=== PATIENT | male | born 1955 | race Caucasian/White ===

== ENCOUNTER 2020-06-09 20:52 | Observation (INO) | payer MEDICARE, OTHER ==
[2020-06-09 21:43] LABS: Basophils # (A) 0.1 k/uL (0-0.2); Basophils % (A) 1 %; Eosinophils # (A) 0.2 k/uL (0-0.7); Eosinophils % (A) 3 %; HGB 16.3 gm/dL (13.0-17.5); Lymphocytes # (A) 2.9 k/uL (1.0-4.8); Lymphocytes % (A) 32 %; MCH 33.6 pg (25.0-35.0); MCHC 35.4 g/dL (31.0-37.0); MCV 94.9 fL (80.0-100.0); Mean Platelet Volume 7.8; Monocytes # (A) 0.6 k/uL (0-1.0); Monocytes % (A) 7 %; Neutrophils # (A) 5.1 k/uL (1.3-7.7); Neutrophils % (A) 56 %; Platelet Count 310 k/uL (150-450); RBC 4.84 m/uL (4.30-5.90); WBC 9.1 k/uL (3.8-10.6)
[2020-06-09 21:45] LABS: ALT 62 U/L (4-49); AST 81 U/L (17-59); Acetaminophen <10.0 ug/mL; African American GFR (CKD) >90 (>60 ml/min/1.73 sqM); Albumin 4.7 g/dL (3.5-5.0); Alkaline Phosphatase 82 U/L (38-126); Anion Gap 12 mmol/L; Blood Urea Nitrogen 13 mg/dL (9-20); Calcium 9.3 mg/dL (8.4-10.2); Carbon Dioxide 23 mmol/L (22-30); Chloride 110 mmol/L (98-107); Glucose 90 mg/dL (74-99); Non-African American GFR(CKD) >90 (>60 ml/min/1.73 sqM); Salicylate <1.0 mg/dL; Sodium 145 mmol/L (137-145); Total Bilirubin 0.6 mg/dL (0.2-1.3); Total Protein 8.1 g/dL (6.3-8.2)
[2020-06-09 21:48] LABS: Alcohol 296 mg/dL
[2020-06-09] MEDS ORDERED: NALOXONE 0.4 MG/ML 1 ML VIAL IV PRN (22:42)
--- NOTE | 2020-06-09 22:55 | ED ---
General Adult HPI - General Chief complaint: Psychiatric Symptoms Stated complaint: Mental Health Time Seen by Provider: 06/09/20 20:57 Source: EMS Mode of arrival: EMS Limitations: no limitations - History of Present Illness Initial comments: Aj is a 65 yo male who was brought to the ER today via ambulance for alcohol intoxication. Apparently the patient had been sleeping in a local gas station bathroom, when attempts were made to kick him out he became irate so 911 was called. Patient was intoxicated so he was brought to the ER. En route patient was aggressive with staff, stated he wanted to , then began crying stating that he does not want to . - Related Data Home Medications Medication Instructions Recorded Confirmed Naproxen [Naprosyn] 500 mg PO Q12HR PRN 06/09/20 06/09/20 Allergies Allergy/AdvReac Type Severity Reaction Status Date / Time No Known Allergies Allergy Verified 02/26/16 18:30 Review of Systems ROS Statement: Those systems with pertinent positive or pertinent negative responses have been documented in the HPI. ROS Other: All systems not noted in ROS Statement are negative. Past Medical History Additional Past Medical History / Comment(s): states chronic heart pt and states hx of head injury History of Any Multi-Drug Resistant Organisms: None Reported Past Surgical History: Unable to Obtain Past Psychological History: No Psychological Hx Reported, Unable to Obtain Smoking Status: Current every day smoker Past Alcohol Use History: Daily, Heavy Past Drug Use History: None Reported, Heroin General Exam - General Exam Comments Initial Comments: Physical Exam GENERAL: appears older than stated age HENT: Normocephalic, Atraumatic. EYES: PERRL, EOMI PULMONARY: Unlabored respirations. CARDIOVASCULAR: RRR Warm and well perfused extremities ABDOMEN: Non-distended SKIN: Abrasion on left knee : Deferred NEUROLOGIC: Alert and oriented MUSCULOSKELETAL: Moving all extremities with no apparent injury PSYCHIATRIC: Agitated, aggressive Limitations: no limitations Course Vital Signs 06/09/20 20:54 Temperature 97.5 F L Pulse Rate 76 Respiratory 20 Rate Blood Pressure 130/95 O2 Sat by Pulse 94 L Oximetry Medical Decision Making - Medical Decision Making Patient was seen and evaluated Patient initially aggressive with staff, able to be calmed and fell asleep Alcohol 296 - will place in observation until sober - Dr Lawrence accepts - Lab Data Result diagrams: 06/09/20 21:23 06/09/20 21:22 Lab Results 06/09/20 06/09/20 Range/Units 21:22 21:23 WBC 9.1 (3.8-10.6) k/uL RBC 4.84 (4.30-5.90) m/uL Hgb 16.3 (13.0-17.5) gm/dL Hct 46.0 (39.0-53.0) % MCV 94.9 (80.0-100.0) fL MCH 33.6 (25.0-35.0) pg MCHC 35.4 (31.0-37.0) g/dL RDW 15.0 (11.5-15.5) % Plt Count 310 (150-450) k/uL MPV 7.8 Neutrophils % 56 % Lymphocytes % 32 % Monocytes % 7 % Eosinophils % 3 % Basophils % 1 % Neutrophils # 5.1 (1.3-7.7) k/uL Lymphocytes # 2.9 (1.0-4.8) k/uL Monocytes # 0.6 (0-1.0) k/uL Eosinophils # 0.2 (0-0.7) k/uL Basophils # 0.1 (0-0.2) k/uL Sodium 145 (137-145) mmol/L Potassium 6.0 H (3.5-5.1) mmol/L Chloride 110 H (98-107) mmol/L Carbon Dioxide 23 (22-30) mmol/L Anion Gap 12 mmol/L BUN 13 (9-20) mg/dL Creatinine 0.76 (0.66-1.25) mg/dL Est GFR (CKD-EPI)AfAm >90 (>60 ml/min/1.73 sqM) Est GFR (CKD-EPI)NonAf >90 (>60 ml/min/1.73 sqM) Glucose 90 (74-99) mg/dL Calcium 9.3 (8.4-10.2) mg/dL Total Bilirubin 0.6 (0.2-1.3) mg/dL AST 81 H (17-59) U/L ALT 62 H (4-49) U/L Alkaline Phosphatase 82 (38-126) U/L Total Protein 8.1 (6.3-8.2) g/dL Albumin 4.7 (3.5-5.0) g/dL Salicylates <1.0 mg/dL Acetaminophen <10.0 ug/mL Serum Alcohol 296 H* mg/dL Disposition Clinical Impression: Alcohol intoxication Disposition: ADMITTED IP TO THIS HOSP Condition: Stable Is patient prescribed a controlled substance at d/c from ED?: No Referrals: None,Stated [Primary Care Provider] - 1-2 days
--- NOTE | 2020-06-10 00:08 | P.HPIM ---
History of Present Illness H&P Date: 06/09/20 Patient is a 65-year-old male, currently homeless with a PMH of EtOH abuse who was brought in to the emergency room for alcohol intoxication. The patient was reportedly found at a gas station bathroom and had refused to leave thereby police was called. They found the patient to be intoxicated and subsequently brought into the emergency room. The patient had reportedly endorsed some suicidal ideation to the police officers. He was seen in the emergency room at the bedside. He reported that he is homeless and that he drinks roughly a gallon of vodka daily and has been doing so for the past several decades. He reported being hungry and asked for food. He denied additional complaints. He denied suicidal ideation and noted that he has no plans of hurting himself. Denied additional complaints. Denied chest pain, shortness breath, fever, chills, nausea, vomiting, abdominal pain, diarrhea. Review of Systems Pertinent positives and negatives as discussed in HPI, a complete review of systems was performed and all other systems are negative. Past Medical History Additional Past Medical History / Comment(s): states chronic heart pt and states hx of head injury History of Any Multi-Drug Resistant Organisms: None Reported Past Surgical History: Unable to Obtain Past Psychological History: No Psychological Hx Reported, Unable to Obtain Smoking Status: Current every day smoker Past Alcohol Use History: Daily, Heavy Past Drug Use History: None Reported, Heroin Medications and Allergies Home Medications Medication Instructions Recorded Confirmed Type Naproxen [Naprosyn] 500 mg PO Q12HR PRN 06/09/20 06/09/20 History Allergies Allergy/AdvReac Type Severity Reaction Status Date / Time No Known Allergies Allergy Verified 02/26/16 18:30 Physical Exam Vitals: Vital Signs Temp Pulse Resp BP Pulse Ox 06/09/20 20:54 97.5 F L 76 20 130/95 94 L Intake and Output 06/09/20 06/09/20 06/10/20 14:59 22:59 06:59 Other: Weight 63.503 kg General: Disheveled male, non toxic, no distress, appears at stated age, normal weight Derm: no unusual rashes/lesions no unusual ecchymoses, warm, dry Head: atraumatic, normocephalic, symmetric Eyes: EOMI, no lid lag, anicteric sclera, pupils equal round reactive to light ENT: Nose and ears atraumatic, no thrush, no pharyngeal erythema Neck: No thyromegaly, no cervical lymphadenopathy, trachea midline, supple Mouth: no lip lesion, mucus membranes moist Cardiovascular: S1S2 reg, grade 3 systolic murmur appreciated, positive posterior tibial pulse bilateral, no edema, capillary refill less than 2 seconds Lungs: CTA bilateral, no rhonchi, no rales , no accessory muscle use Abdominal: soft, nontender to palpation, no guarding, no appreciable organomegaly, normal bowel sounds Ext: no gross muscle atrophy, muscle strength 5 out of 5 in all 4 extremities grossly, no contractures, Neuro: CN II-XI grossly intact, light touch intact all 4 extremities, finger to nose within normal limits, slightly tremulous Psych: Alert, oriented, appropriate affect Results CBC & Chem 7: 06/09/20 21:23 06/09/20 21:22 Labs: Abnormal Lab Results - Last 24 Hours (Table) 06/09/20 Range/Units 21:22 Potassium 6.0 H (3.5-5.1) mmol/L Chloride 110 H (98-107) mmol/L AST 81 H (17-59) U/L ALT 62 H (4-49) U/L Serum Alcohol 296 H* mg/dL Assessment and Plan Plan: Alcohol intoxication, impending withdrawal -CIWA protocol -Continue with thiamine -Monitor electrolytes -Fall precautions Abnormal LFTs, likely due to alcohol abuse -Monitor for now DVT prophylaxis -Heparin subq The patient is admitted with an anticipated less than 2 midnight stay for evaluation of EtOH abuse CODE STATUS: Ful Code Discussed with: patient Anticipated discharge date: in am Anticipated discharge place: senior living A total of 35 minutes was spent on the care of this complex patient more than 50% of the time was spent in counseling and care coordination.
[2020-06-10] MEDS ORDERED: SODIUM CHLORIDE 0.9% 1,000 ML IV SCH (00:15)
[2020-06-10 01:58] VITALS: PULSE 72
[2020-06-10 02:49] LABS: Amphetamine Screen,Urine Not Detected (NotDetected); Barbiturate Screen,Urine Not Detected (NotDetected); Benzodiazepines Screen,Urine Detected (NotDetected); Cocaine Screen,Urine Not Detected (NotDetected); Methadone Screen, Urine Not Detected (NotDetected); Opiate Screen,Urine Not Detected (NotDetected); Oxycodone Screen, Urine Not Detected (NotDetected); Phencyclidine Screen,Urine Not Detected (NotDetected); Tricyclic Antidepressant,Urine Not Detected (NotDetected); Urn Cannabinoid Scrn Not Detected (NotDetected)
[2020-06-10 05:14] VITALS: BP 108/72; RESP 18; TEMP 98.8
[2020-06-10] MEDS ORDERED: HEPARIN SODIUM,PORCINE 5,000 UNIT/ML 1 ML VIAL SQ SCH (08:00)
[2020-06-10] MEDS ORDERED: THIAMINE 100 MG TAB PO SCH (09:00)
[2020-06-10] MEDS ORDERED: MULTIVITAMINS, THERA 1 EACH TAB PO SCH (09:00)
== END 2020-06-10 05:17 | disposition left against medical advice (07) ==
LOC: EC 20:52 → 6NMEDSUR 22:43
PROVIDERS: ADMIT Internal Medicine; ATTEND Internal Medicine
DX: F10.129 Alcohol abuse with intoxication, unspecified (principal); R94.5 Abnormal results of liver function studies; F17.200 Nicotine dependence, unspecified, uncomplicated; Z59.0 Homelessness; Z87.828 Personal history of other (healed) physical injury and trauma
CPT/HCPCS: 96360; 96361; 82075 ×2; 99285; 36415; 80053; 85025; 80306; 80143; 80179; G0378 ×2; G0480; 80320

== ENCOUNTER 2020-06-11 20:31 | Observation (INO) | payer OTHER ==
[~2020-06-11 20:31] MED LIST: THIAMINE 100 MG TAB PO SCH
--- NOTE | 2020-06-11 20:45 | ED ---
General Adult HPI - General Source: patient, EMS, RN notes reviewed Mode of arrival: EMS Limitations: no limitations <Ron Lyon - Last Filed: 06/11/20 21:05> <Won Marrero P - Last Filed: 06/11/20 23:18> - General Stated complaint: ETOH Time Seen by Provider: 06/11/20 20:36 - History of Present Illness Initial comments: Patient is a 65-year-old male presenting to the emergency department for alcohol intoxication. Patient was reportedly found outside with a bottle of vodka. Patient admits to drinking a lot of alcohol normally. Patient states he did drink a little bit more than normal today. Patient denies any injury. Patient has no complaints. (Ron Lyon) - Related Data Home Medications Medication Instructions Recorded Confirmed Naproxen [Naprosyn] 500 mg PO Q12HR PRN 06/09/20 06/11/20 Allergies Allergy/AdvReac Type Severity Reaction Status Date / Time No Known Allergies Allergy Verified 06/11/20 21:46 Review of Systems ROS Other: All systems not noted in ROS Statement are negative. Constitutional: Denies: fever Eyes: Denies: eye pain ENT: Denies: ear pain Respiratory: Denies: cough Cardiovascular: Denies: chest pain Endocrine: Denies: fatigue Gastrointestinal: Denies: abdominal pain Genitourinary: Denies: dysuria Musculoskeletal: Denies: back pain Skin: Denies: rash Neurological: Denies: weakness <Ron Lyon - Last Filed: 06/11/20 21:05> ROS Other: All systems not noted in ROS Statement are negative. <Won Marrero P - Last Filed: 06/11/20 23:18> ROS Statement: Those systems with pertinent positive or pertinent negative responses have been documented in the HPI. Past Medical History Additional Past Medical History / Comment(s): states chronic heart pt and states hx of head injury History of Any Multi-Drug Resistant Organisms: None Reported Past Surgical History: Unable to Obtain Past Psychological History: No Psychological Hx Reported, Unable to Obtain Smoking Status: Current every day smoker Past Alcohol Use History: Daily, Heavy Past Drug Use History: None Reported, Heroin <Ron Lyon - Last Filed: 06/11/20 21:05> General Exam Limitations: no limitations General appearance: alert, in no apparent distress Eye exam: Present: normal appearance, PERRL Neck exam: Present: normal inspection. Absent: tenderness Respiratory exam: Present: normal lung sounds bilaterally Cardiovascular Exam: Present: regular rate, normal rhythm GI/Abdominal exam: Present: soft. Absent: tenderness Extremities exam: Present: normal inspection, full ROM. Absent: tenderness Neurological exam: Present: alert Expanded Patient oriented to: Present: person. Absent: place, time Psychiatric exam: Present: normal affect, normal mood Skin exam: Present: normal color <Ron Lyon - Last Filed: 06/11/20 21:05> Course Vital Signs 06/11/20 20:46 Temperature 97.6 F Pulse Rate 85 Respiratory 18 Rate Blood Pressure 120/87 O2 Sat by Pulse 98 Oximetry Medical Decision Making - Lab Data Result diagrams: 06/11/20 21:32 06/11/20 21:32 <Won Marrero - Last Filed: 06/11/20 23:18> - Medical Decision Making Patient care was signed out to me by Dr. Lyon at 2100. Patient alcohol was found to be 325. Patient reevaluated, clinically acutely intoxicated. Patient is homeless, does not have anyone to pick him up. Patient will be admitted for acute alcohol intoxication and monitoring. (Won Marrero) - Lab Data Lab Results 06/11/20 06/11/20 Range/Units 21:32 21:32 WBC 7.6 (3.8-10.6) k/uL RBC 4.72 (4.30-5.90) m/uL Hgb 15.0 (13.0-17.5) gm/dL Hct 45.0 (39.0-53.0) % MCV 95.3 (80.0-100.0) fL MCH 31.7 (25.0-35.0) pg MCHC 33.3 (31.0-37.0) g/dL RDW 15.0 (11.5-15.5) % Plt Count 242 (150-450) k/uL MPV 8.3 Neutrophils % 53 % Lymphocytes % 29 % Monocytes % 11 % Eosinophils % 3 % Basophils % 1 % Neutrophils # 4.0 (1.3-7.7) k/uL Lymphocytes # 2.2 (1.0-4.8) k/uL Monocytes # 0.8 (0-1.0) k/uL Eosinophils # 0.2 (0-0.7) k/uL Basophils # 0.1 (0-0.2) k/uL Sodium 145 (137-145) mmol/L Potassium 3.8 (3.5-5.1) mmol/L Chloride 109 H (98-107) mmol/L Carbon Dioxide 23 (22-30) mmol/L Anion Gap 13 mmol/L BUN 16 (9-20) mg/dL Creatinine 0.88 (0.66-1.25) mg/dL Est GFR (CKD-EPI)AfAm >90 (>60 ml/min/1.73 sqM) Est GFR (CKD-EPI)NonAf >90 (>60 ml/min/1.73 sqM) Glucose 130 H (74-99) mg/dL Calcium 9.4 (8.4-10.2) mg/dL Magnesium 2.2 (1.6-2.3) mg/dL Serum Alcohol 325 H* mg/dL Disposition Is patient prescribed a controlled substance at d/c from ED?: No <Ron Lyon - Last Filed: 06/11/20 21:05> Is patient prescribed a controlled substance at d/c from ED?: No Time of Disposition: 23:18 <Won Marrero - Last Filed: 06/11/20 23:18> Clinical Impression: Alcohol intoxication Disposition: ADMITTED IP TO THIS HOSP Condition: Fair Referrals: None,Stated [Primary Care Provider] - 1-2 days
[2020-06-11 20:58] VITALS: BP 120/87; PULSE 85; RESP 18; TEMP 97.6
[2020-06-11] MEDS ORDERED: SODIUM CHLORIDE 0.9% 1,000 ML IV STA (21:06)
[2020-06-11] MEDS ORDERED: MULTIVITAMINS, THERA 1 EACH TAB PO STA (21:06)
[2020-06-11 21:38] LABS: Basophils # (A) 0.1 k/uL (0-0.2); Basophils % (A) 1 %; Eosinophils # (A) 0.2 k/uL (0-0.7); Eosinophils % (A) 3 %; Lymphocytes # (A) 2.2 k/uL (1.0-4.8); Lymphocytes % (A) 29 %; MCH 31.7 pg (25.0-35.0); MCHC 33.3 g/dL (31.0-37.0); MCV 95.3 fL (80.0-100.0); Mean Platelet Volume 8.3; Monocytes # (A) 0.8 k/uL (0-1.0); Monocytes % (A) 11 %; Neutrophils % (A) 53 %; Platelet Count 242 k/uL (150-450); RBC 4.72 m/uL (4.30-5.90); WBC 7.6 k/uL (3.8-10.6)
[2020-06-11 21:47] LABS: African American GFR (CKD) >90 (>60 ml/min/1.73 sqM); Anion Gap 13 mmol/L; Blood Urea Nitrogen 16 mg/dL (9-20); Calcium 9.4 mg/dL (8.4-10.2); Carbon Dioxide 23 mmol/L (22-30); Chloride 109 mmol/L (98-107); Glucose 130 mg/dL (74-99); Magnesium 2.2 mg/dL (1.6-2.3); Non-African American GFR(CKD) >90 (>60 ml/min/1.73 sqM); Potassium 3.8 mmol/L (3.5-5.1); Sodium 145 mmol/L (137-145)
[2020-06-11 22:14] LABS: Alcohol 325 mg/dL
[2020-06-11] MEDS ORDERED: NALOXONE 0.4 MG/ML 1 ML VIAL IV PRN (23:15)
[2020-06-11] MEDS ORDERED: LORazepam 2 MG/ML INJ IV PRN ×3 (23:17)
[2020-06-12] MEDS ORDERED: NICOTINE 21MG/24HR PATCH TRANSDERM STA (01:24)
[2020-06-12] MEDS ORDERED: THIAMINE 100 MG TAB PO SCH (09:00)
== END 2020-06-12 03:47 | disposition left against medical advice (07) ==
LOC: EC 20:31 → 6NMEDSUR 23:08
PROVIDERS: ADMIT Hospitalist; ATTEND Hospitalist
DX: F10.129 Alcohol abuse with intoxication, unspecified (principal); F17.200 Nicotine dependence, unspecified, uncomplicated; Y90.8 Blood alcohol level of 240 mg/100 ml or more; Z79.1 Long term (current) use of non-steroidal anti-inflammatories (NSAID); Z59.0 Homelessness; Z87.828 Personal history of other (healed) physical injury and trauma; Z53.29 Procedure and treatment not carried out because of patient's decision for other reasons
CPT/HCPCS: 82075; 99285; 36415; 80048; 83735; 85025; G0378 ×2; G0480; S4990; 80320

== ENCOUNTER 2020-06-13 11:11 | Inpatient (IN) | payer OTHER ==
[2020-06-13] MEDS ORDERED: SODIUM CHLORIDE 0.9% 1,000 ML IV ONE ×2 (11:49→13:19)
--- NOTE | 2020-06-13 12:01 | ED ---
General Adult HPI - General Chief complaint: Alcohol Stated complaint: ETOH Time Seen by Provider: 06/13/20 11:25 Source: patient, EMS, RN notes reviewed, old records reviewed Mode of arrival: EMS Limitations: altered mental status - History of Present Illness Initial comments: This is a 65-year-old male with past medical history significant for alcohol intoxication. Patient comes in today because he was found lying outside and unable to take care of himself so the police wanted him brought in for evaluation. Patient states he just drank a lot. Patient denies any physical complaints today. Patient denies any hallucinations or delusions. Patient denies being depressed. Patient denies any suicidal or homicidal thoughts. Patient denies any recent injury. - Related Data Home Medications Medication Instructions Recorded Confirmed Naproxen [Naprosyn] 500 mg PO Q12HR PRN 06/09/20 06/11/20 Allergies Allergy/AdvReac Type Severity Reaction Status Date / Time No Known Allergies Allergy Verified 06/11/20 21:46 Review of Systems ROS Statement: Those systems with pertinent positive or pertinent negative responses have been documented in the HPI. ROS Other: All systems not noted in ROS Statement are negative. Past Medical History Past Medical History: Unable to Obtain Additional Past Medical History / Comment(s): states chronic heart pt and states hx of head injury History of Any Multi-Drug Resistant Organisms: None Reported Past Surgical History: Unable to Obtain Past Psychological History: Unable to Obtain Smoking Status: Current every day smoker Past Alcohol Use History: Abuse, Daily, Heavy Past Drug Use History: None Reported, Heroin General Exam - General Exam Comments Initial Comments: GENERAL: Patient is well-developed and well-nourished. Patient is nontoxic and well- hydrated and is in no acute distress. Patient appears very intoxicated ENT: Neck is soft and supple. No significant lymphadenopathy is noted. Oropharynx is clear. Moist mucous membranes. Neck has full range of motion without eliciting any pain. EYES: The sclera were anicteric and conjunctiva were pink and moist. Extraocular movements were intact and pupils were equal round and reactive to light. Eyelids were unremarkable. PULMONARY: Unlabored respirations. Good breath sounds bilaterally. No audible rales rhonchi or wheezing was noted. CARDIOVASCULAR: There is a regular rate and rhythm without any murmurs gallops or rubs. ABDOMEN: Soft and nontender with normal bowel sounds. SKIN: Skin is clear with no lesions or rashes and otherwise unremarkable. NEUROLOGIC: Patient is alert and oriented x3. Cranial nerves II through XII are grossly intact. Motor and sensory are also intact. Normal speech, volume and content. Symmetrical smile. MUSCULOSKELETAL: Normal extremities with adequate strength and full range of motion. LYMPHATICS: No significant lymphadenopathy is noted PSYCHIATRIC: Patient denies suicidal homicidal ideations. Limitations: altered mental status Course Vital Signs 06/13/20 11:23 Temperature 97.6 F Pulse Rate 83 Respiratory 18 Rate Blood Pressure 114/82 O2 Sat by Pulse 98 Oximetry Medical Decision Making - Medical Decision Making Patient is heavily intoxicated. Spoke with Dr. Mann he agreed to admit the patient admitted the patient wrote admitting orders. - Lab Data Result diagrams: 06/13/20 11:55 06/13/20 11:55 Lab Results 06/13/20 06/13/20 Range/Units 11:55 11:55 WBC 12.0 H (3.8-10.6) k/uL RBC 4.51 (4.30-5.90) m/uL Hgb 14.7 (13.0-17.5) gm/dL Hct 42.2 (39.0-53.0) % MCV 93.7 (80.0-100.0) fL MCH 32.7 (25.0-35.0) pg MCHC 34.8 (31.0-37.0) g/dL RDW 14.8 (11.5-15.5) % Plt Count 311 (150-450) k/uL MPV 6.9 Neutrophils % 72 % Lymphocytes % 17 % Monocytes % 8 % Eosinophils % 0 % Basophils % 1 % Neutrophils # 8.7 H (1.3-7.7) k/uL Lymphocytes # 2.0 (1.0-4.8) k/uL Monocytes # 1.0 (0-1.0) k/uL Eosinophils # 0.1 (0-0.7) k/uL Basophils # 0.1 (0-0.2) k/uL Sodium 143 (137-145) mmol/L Potassium 4.2 (3.5-5.1) mmol/L Chloride 106 (98-107) mmol/L Carbon Dioxide 21 L (22-30) mmol/L Anion Gap 16 mmol/L BUN 17 (9-20) mg/dL Creatinine 0.68 (0.66-1.25) mg/dL Est GFR (CKD-EPI)AfAm >90 (>60 ml/min/1.73 sqM) Est GFR (CKD-EPI)NonAf >90 (>60 ml/min/1.73 sqM) Glucose 106 H (74-99) mg/dL Calcium 10.0 (8.4-10.2) mg/dL Magnesium 1.9 (1.6-2.3) mg/dL Total Bilirubin 0.4 (0.2-1.3) mg/dL AST 70 H (17-59) U/L ALT 48 (4-49) U/L Alkaline Phosphatase 104 (38-126) U/L Total Protein 7.8 (6.3-8.2) g/dL Albumin 4.6 (3.5-5.0) g/dL Serum Alcohol 339 H* mg/dL Disposition Clinical Impression: Alcohol intoxication Disposition: ADMITTED IP TO THIS HOSP Referrals: None,Stated [Primary Care Provider] - 1-2 days Time of Disposition: 13:19
[2020-06-13 12:16] LABS: Basophils # (A) 0.1 k/uL (0-0.2); Basophils % (A) 1 %; Eosinophils # (A) 0.1 k/uL (0-0.7); Eosinophils % (A) 0 %; HCT 42.2 % (39.0-53.0); HGB 14.7 gm/dL (13.0-17.5); Lymphocytes % (A) 17 %; MCH 32.7 pg (25.0-35.0); MCHC 34.8 g/dL (31.0-37.0); MCV 93.7 fL (80.0-100.0); Mean Platelet Volume 6.9; Monocytes % (A) 8 %; Neutrophils # (A) 8.7 k/uL (1.3-7.7); Neutrophils % (A) 72 %; Platelet Count 311 k/uL (150-450); RBC 4.51 m/uL (4.30-5.90); RDW 14.8 % (11.5-15.5)
[2020-06-13 12:25] LABS: ALT 48 U/L (4-49); AST 70 U/L (17-59); African American GFR (CKD) >90 (>60 ml/min/1.73 sqM); Albumin 4.6 g/dL (3.5-5.0); Alkaline Phosphatase 104 U/L (38-126); Anion Gap 16 mmol/L; Blood Urea Nitrogen 17 mg/dL (9-20); Carbon Dioxide 21 mmol/L (22-30); Chloride 106 mmol/L (98-107); Glucose 106 mg/dL (74-99); Magnesium 1.9 mg/dL (1.6-2.3); Non-African American GFR(CKD) >90 (>60 ml/min/1.73 sqM); Potassium 4.2 mmol/L (3.5-5.1); Sodium 143 mmol/L (137-145); Total Bilirubin 0.4 mg/dL (0.2-1.3); Total Protein 7.8 g/dL (6.3-8.2)
[2020-06-13] MEDS ORDERED: SODIUM CHLORIDE 0.9% 1,000 ML with MVI, ADULT NO.4 WITH VIT K 10 ML, THIAMINE 100 MG, F... IV ONE ×4 (12:30)
[2020-06-13 12:39] LABS: Alcohol 339 mg/dL
[2020-06-13] MEDS ORDERED: THIAMINE 100 MG/ML 2 ML VIAL IM STA (13:22)
[2020-06-13] MEDS ORDERED: LORazepam 2 MG/ML INJ IV PRN ×3 (13:22)
[2020-06-13] MEDS ORDERED: THIAMINE 100 MG TAB PO SCH (17:30)
[2020-06-13 17:40] VITALS: TEMP 97.8
[2020-06-13] MEDS ORDERED: NAPROXEN 250 MG TAB PO PRN (20:02)
[2020-06-13] MEDS ORDERED: ALPRAZolam 0.25 MG TAB PO PRN (20:04)
[2020-06-13] MEDS ORDERED: HYDROcodone/APAP 5-325MG 1 EACH TAB PO PRN (20:04)
[2020-06-13] MEDS ORDERED: TEMAZEPAM 15 MG CAP PO PRN (20:04)
[2020-06-13 20:20] LABS: Appearance,Urine Clear (Clear); Bilirubin,Urine Negative (Negative); Blood,Urine Negative (Negative); Color,Urine Colorless; Glucose,Urine (UA) Negative (Negative); Ketones,Urine Negative (Negative); Leukocyte Esterase,Urine Negative (Negative); Nitrite,Urine Negative (Negative); Protein,Urine Negative (Negative); Specific Gravity,Urine 1.003 (1.001-1.035); Urobilinogen,Urine <2.0 mg/dL (<2.0)
[2020-06-13 20:32] LABS: Amphetamine Screen,Urine Not Detected (NotDetected); Barbiturate Screen,Urine Not Detected (NotDetected); Benzodiazepines Screen,Urine Detected (NotDetected); Cocaine Screen,Urine Not Detected (NotDetected); Methadone Screen, Urine Not Detected (NotDetected); Opiate Screen,Urine Not Detected (NotDetected); Oxycodone Screen, Urine Not Detected (NotDetected); Phencyclidine Screen,Urine Not Detected (NotDetected); Tricyclic Antidepressant,Urine Not Detected (NotDetected); Urn Cannabinoid Scrn Not Detected (NotDetected)
--- NOTE | 2020-06-13 20:32 | XR ---
EXAMINATION TYPE: XR chest 1V portable DATE OF EXAM: 06/13/2020 COMPARISON: NONE HISTORY: Short of breath TECHNIQUE: Single view FINDINGS: There is no heart failure nor confluent pneumonic infiltrate. There is slight coarsening of interstitial markings. Bony thorax is intact. There is old healed fracture right clavicle. IMPRESSION: There is probably some pulmonary fibrosis.
[2020-06-13 20:42] VITALS: BP 113/76; PULSE 94; RESP 16
[2020-06-13] MEDS ORDERED: HEPARIN SODIUM,PORCINE 5,000 UNIT/ML 1 ML VIAL SQ SCH (21:00)
--- NOTE | 2020-06-13 22:07 | HP ---
HISTORY AND PHYSICAL DATE OF SERVICE: 06/13/2020. CHIEF COMPLAINT: Alcohol intoxication. HISTORY OF PRESENT ILLNESS: This 65-year-old gentleman with a past medical history of apparent chronic heart disease and chronic kidney injury, not being followed by any primary care physician in the outpatient setting, was found to have be lying outside after severe alcohol intoxication. The patient complains of weakness. Patient confused. The pediatric orthodontist brought him in for evaluation. Patient admitted for further evaluation and treatment. There is no history of fever, rigors. No history of any headache and as mentioned earlier a detailed history could not be taken from the patient. Most of the history taken from my discussion with staff and the ER physician and review of chart. PAST MEDICAL HISTORY: Apparent chronic heart and head injury, alcohol abuse. MEDICATIONS: Prior to admission: Naprosyn. ALLERGIES: None. Family history, social history and review of systems could not be taken because of the above mentioned reasons. PHYSICAL EXAMINATION: Patient is conscious, confused. Pulse 79, blood pressure 100/60, respiration 18, temperature 97.8, pulse ox 94% on room air. HEENT is conjunctivae normal. Oral mucosa moist. NECK is no jugular venous distention. No carotid bruit. No lymph node enlargement. CARDIOVASCULAR: S1, S2 muffled. RESPIRATORY: Breath sounds diminished in the bases. No rhonchi. No crackles. ABDOMEN: Soft, nontender. No mass palpable. LEGS: No edema. No swelling. NERVOUS SYSTEM: Higher functions as mentioned earlier. Moves all four limbs. No focal motor or sensory deficits. Lymphatics: No lymph nodes palpable in the neck, axillae or groin. SKIN: No ulcers, rashes or bleeding. JOINTS: No active deforming arthropathy. LABS: WBC 12, hemoglobin 14.2, alcohol 339. ASSESSMENT: 1. Acute alcohol intoxication. 2. Acute delirium tremens, early. 3. Change in mental status acute metabolic encephalopathy multifactorial. 4. Increased WBC. 5. History of possible chronic heart disease. 6. History of chronic head injury. 7. History of ETOH. 8. History of nicotine dependence. RECOMMENDATIONS AND DISCUSSION: In this 65-year-old gentleman who presented with multiple complex medical issues, we will monitor the patient closely. Continue the current medications. WA protocol. Symptomatic treatment provided. Otherwise PT/OT evaluation and as well as I would also recommend a CT of the brain and also evaluation by the Case Management/manager social team to arrange for possible alcohol rehab. Overall prognosis is extremely guarded. Further recommendations to follow. MMODL / IJN: [id number] /
[2020-06-14] MEDS ORDERED: PANTOPRAZOLE 40 MG TABLET PO SCH (07:30)
[2020-06-14] MEDS ORDERED: MULTIVITAMINS, THERA 1 EACH TAB PO SCH (12:00)
[2020-06-14] MEDS ORDERED: FOLIC ACID 1 MG TAB PO SCH (12:00)
--- NOTE | 2020-06-14 19:38 | DS ---
DISCHARGE SUMMARY DATE OF SERVICE: 06/14/2020 FINAL DIAGNOSES: 1. Acute alcohol intoxication. 2. Acute delirium tremens early. 3. Change in mental status, acute metabolic encephalopathy, multifactorial. 4. Increased WBC. 5. History of possible chronic heart disease. 6. History of chronic kidney disease. 7. ETOH. 8. History of nicotine dependence. DISCHARGE DISPOSITION: The patient left the hospital AGAINST MEDICAL ADVICE. HISTORY OF PRESENT ILLNESS: This 65-year-old gentleman admitted with alcohol intoxication, multiple medical problems as mentioned earlier, but however the patient was not willing to stay. The patient left the hospital against medical advice from the ER itself. Please refer to the ER notes, staff notes and other notes for further information. The prognosis remains extremely guarded. Further recommendations to follow. MMODL / IJN: [id number] /
== END 2020-06-13 23:51 | disposition left against medical advice (07) | DRG 894 ==
LOC: EC 11:11 → 5NMEDONC 13:22
PROVIDERS: ADMIT Hospitalist; ATTEND Hospitalist
DX: F10.229 Alcohol dependence with intoxication, unspecified (principal); G93.41 Metabolic encephalopathy; F10.231 Alcohol dependence with withdrawal delirium; F17.200 Nicotine dependence, unspecified, uncomplicated; Z20.822 Contact with and (suspected) exposure to COVID-19; N18.9 Chronic kidney disease, unspecified; I51.9 Heart disease, unspecified; Y90.8 Blood alcohol level of 240 mg/100 ml or more; Z87.820 Personal history of traumatic brain injury
CPT/HCPCS: 36415; 71045; 80053; 80306; 80320; 81003; 83735; 85025; 87635; 96360; 99285

== ENCOUNTER 2020-06-14 09:15 | Emergency (ER) | payer OTHER ==
[2020-06-14 09:19] VITALS: RESP 20
--- NOTE | 2020-06-14 09:34 | ED ---
General Adult HPI - General Chief complaint: Chest Pain Stated complaint: Chest pain Time Seen by Provider: 06/14/20 09:15 Source: patient, RN notes reviewed, old records reviewed Mode of arrival: EMS Limitations: no limitations - History of Present Illness Initial comments: This is a 65-year-old male who presents emergency Department complaining of karly st pain. Patient states the chest pains ongoing for a month. Patient also admits that he is a heavy drinker. Patient is not sure when his last drink was. Patient denies any shortness of breath or difficulty breathing. Patient denies any fever chills or cough per patient denies abdominal pain patient denies nausea vomiting diarrhea. - Related Data Home Medications Medication Instructions Recorded Confirmed Naproxen [Naprosyn] 500 mg PO Q12H PRN 06/09/20 06/14/20 Allergies Allergy/AdvReac Type Severity Reaction Status Date / Time No Known Allergies Allergy Verified 06/14/20 11:16 Review of Systems ROS Statement: Those systems with pertinent positive or pertinent negative responses have been documented in the HPI. ROS Other: All systems not noted in ROS Statement are negative. Past Medical History Past Medical History: Unable to Obtain Additional Past Medical History / Comment(s): states chronic heart pt and states hx of head injury History of Any Multi-Drug Resistant Organisms: None Reported Past Surgical History: Unable to Obtain Past Psychological History: Unable to Obtain Smoking Status: Current every day smoker Past Alcohol Use History: Abuse, Daily, Heavy Past Drug Use History: None Reported, Heroin General Exam - General Exam Comments Initial Comments: GENERAL: Patient is well-developed and well-nourished. Patient is nontoxic and well-hydrated and is in no acute distress. ENT: Neck is soft and supple. No significant lymphadenopathy is noted. Oropharynx is clear. Moist mucous membranes. Neck has full range of motion without eliciting any pain. EYES: The sclera were anicteric and conjunctiva were pink and moist. Extraocular movements were intact and pupils were equal round and reactive to light. Eyelids were unremarkable. PULMONARY: Unlabored respirations. Good breath sounds bilaterally. No audible rales rhonchi or wheezing was noted. CARDIOVASCULAR: There is a regular rate and rhythm without any murmurs gallops or rubs. ABDOMEN: Soft and nontender with normal bowel sounds. SKIN: Skin is clear with no lesions or rashes and otherwise unremarkable. NEUROLOGIC: Patient is alert and oriented x3. Cranial nerves II through XII are grossly intact. Motor and sensory are also intact. Normal speech, volume and content. Symmetrical smile. MUSCULOSKELETAL: Normal extremities with adequate strength and full range of motion. No lower extremity swelling or edema. No calf tenderness. LYMPHATICS: No significant lymphadenopathy is noted PSYCHIATRIC: Normal psychiatric evaluation. Limitations: no limitations Course Vital Signs 06/14/20 06/14/20 09:16 11:02 Temperature 98.7 F Pulse Rate 64 64 Respiratory 20 20 Rate Blood Pressure 141/90 141/88 O2 Sat by Pulse 98 99 Oximetry Medical Decision Making - Medical Decision Making EKG shows normal sinus rhythm at 66 bpm AR interval is 146 QRS is 90 QT interval 410 QTC is 429. EKG shows no ST segment elevation or depression. Patient was ambulatory without being off balance and alert and oriented 3. Patient did not want to stay in the emergency department anymore and patient was discharged home. - Lab Data Result diagrams: 06/14/20 09:39 06/14/20 09:39 Lab Results 06/14/20 06/14/20 06/14/20 Range/Units 09:39 09:39 09:39 WBC 7.2 (3.8-10.6) k/uL RBC 4.63 (4.30-5.90) m/uL Hgb 15.1 (13.0-17.5) gm/dL Hct 43.6 (39.0-53.0) % MCV 94.3 (80.0-100.0) fL MCH 32.6 (25.0-35.0) pg MCHC 34.6 (31.0-37.0) g/dL RDW 15.1 (11.5-15.5) % Plt Count 307 (150-450) k/uL MPV 6.9 Neutrophils % 57 % Lymphocytes % 31 % Monocytes % 5 % Eosinophils % 3 % Basophils % 1 % Neutrophils # 4.1 (1.3-7.7) k/uL Lymphocytes # 2.3 (1.0-4.8) k/uL Monocytes # 0.4 (0-1.0) k/uL Eosinophils # 0.2 (0-0.7) k/uL Basophils # 0.1 (0-0.2) k/uL PT 9.5 (9.0-12.0) sec INR 0.9 (<1.2) APTT 23.7 (22.0-30.0) sec Sodium 145 (137-145) mmol/L Potassium 4.6 (3.5-5.1) mmol/L Chloride 109 H (98-107) mmol/L Carbon Dioxide 22 (22-30) mmol/L Anion Gap 14 mmol/L BUN 11 (9-20) mg/dL Creatinine 0.60 L (0.66-1.25) mg/dL Est GFR (CKD-EPI)AfAm >90 (>60 ml/min/1.73 sqM) Est GFR (CKD-EPI)NonAf >90 (>60 ml/min/1.73 sqM) Glucose 100 H (74-99) mg/dL Calcium 9.5 (8.4-10.2) mg/dL Magnesium 2.1 (1.6-2.3) mg/dL Total Bilirubin 0.5 (0.2-1.3) mg/dL AST 89 H (17-59) U/L ALT 56 H (4-49) U/L Alkaline Phosphatase 76 (38-126) U/L Troponin I (0.000-0.034) ng/mL Total Protein 7.8 (6.3-8.2) g/dL Albumin 4.6 (3.5-5.0) g/dL 06/14/20 Range/Units 09:39 WBC (3.8-10.6) k/uL RBC (4.30-5.90) m/uL Hgb (13.0-17.5) gm/dL Hct (39.0-53.0) % MCV (80.0-100.0) fL MCH (25.0-35.0) pg MCHC (31.0-37.0) g/dL RDW (11.5-15.5) % Plt Count (150-450) k/uL MPV Neutrophils % % Lymphocytes % % Monocytes % % Eosinophils % % Basophils % % Neutrophils # (1.3-7.7) k/uL Lymphocytes # (1.0-4.8) k/uL Monocytes # (0-1.0) k/uL Eosinophils # (0-0.7) k/uL Basophils # (0-0.2) k/uL PT (9.0-12.0) sec INR (<1.2) APTT (22.0-30.0) sec Sodium (137-145) mmol/L Potassium (3.5-5.1) mmol/L Chloride (98-107) mmol/L Carbon Dioxide (22-30) mmol/L Anion Gap mmol/L BUN (9-20) mg/dL Creatinine (0.66-1.25) mg/dL Est GFR (CKD-EPI)AfAm (>60 ml/min/1.73 sqM) Est GFR (CKD-EPI)NonAf (>60 ml/min/1.73 sqM) Glucose (74-99) mg/dL Calcium (8.4-10.2) mg/dL Magnesium (1.6-2.3) mg/dL Total Bilirubin (0.2-1.3) mg/dL AST (17-59) U/L ALT (4-49) U/L Alkaline Phosphatase (38-126) U/L Troponin I <0.012 (0.000-0.034) ng/mL Total Protein (6.3-8.2) g/dL Albumin (3.5-5.0) g/dL Disposition Clinical Impression: Chest pain, Alcohol abuse Disposition: HOME SELF-CARE Instructions (If sedation given, give patient instructions): Chest Pain (ED), Abuse of Alcohol (ED) Referrals: None,Stated [Primary Care Provider] - 1-2 days Time of Disposition: 11:44
[2020-06-14 10:06] LABS: Basophils # (A) 0.1 k/uL (0-0.2); Basophils % (A) 1 %; Eosinophils # (A) 0.2 k/uL (0-0.7); Eosinophils % (A) 3 %; HCT 43.6 % (39.0-53.0); HGB 15.1 gm/dL (13.0-17.5); Lymphocytes # (A) 2.3 k/uL (1.0-4.8); Lymphocytes % (A) 31 %; MCH 32.6 pg (25.0-35.0); MCHC 34.6 g/dL (31.0-37.0); MCV 94.3 fL (80.0-100.0); Mean Platelet Volume 6.9; Monocytes # (A) 0.4 k/uL (0-1.0); Monocytes % (A) 5 %; Neutrophils # (A) 4.1 k/uL (1.3-7.7); Neutrophils % (A) 57 %; Platelet Count 307 k/uL (150-450); RBC 4.63 m/uL (4.30-5.90); RDW 15.1 % (11.5-15.5); WBC 7.2 k/uL (3.8-10.6)
[2020-06-14 10:21] LABS: ALT 56 U/L (4-49); African American GFR (CKD) >90 (>60 ml/min/1.73 sqM); Albumin 4.6 g/dL (3.5-5.0); Anion Gap 14 mmol/L; Blood Urea Nitrogen 11 mg/dL (9-20); Calcium 9.5 mg/dL (8.4-10.2); Carbon Dioxide 22 mmol/L (22-30); Chloride 109 mmol/L (98-107); Glucose 100 mg/dL (74-99); Non-African American GFR(CKD) >90 (>60 ml/min/1.73 sqM); Sodium 145 mmol/L (137-145); Total Bilirubin 0.5 mg/dL (0.2-1.3); Total Protein 7.8 g/dL (6.3-8.2)
[2020-06-14 10:23] LABS: Potassium 4.6 mmol/L (3.5-5.1)
[2020-06-14 10:24] LABS: AST 89 U/L (17-59); Alkaline Phosphatase 76 U/L (38-126); Magnesium 2.1 mg/dL (1.6-2.3)
[2020-06-14 10:33] LABS: INR 0.9 (<1.2); Partial Thromboplastin Time 23.7 sec (22.0-30.0); Prothrombin Time 9.5 sec (9.0-12.0)
--- NOTE | 2020-06-14 11:58 | XR ---
EXAMINATION TYPE: XR chest 1V portable DATE OF EXAM: 06/14/2020 HISTORY: Shortness of breath. COMPARISON: 06/13/2020 TECHNIQUE: Single view of the chest is submitted. FINDINGS: Demonstrated are scattered senescent parenchymal change. Scattered interstitial prominence is unchanged. No focal infiltrates seen at this time. The heart is stable. Hilar and mediastinal structures are within normal limits. Degenerative changes are seen of the dorsal spine. IMPRESSION: 1. Chronic changes without evidence for acute pulmonary disease.
[2020-06-14 12:08] VITALS: BP 147/80; PULSE 84; TEMP 98.3
== END 2020-06-14 12:08 | disposition home or self-care (01) ==
LOC: EC 09:15
DX: R07.9 Chest pain, unspecified (principal); F10.10 Alcohol abuse, uncomplicated; F17.200 Nicotine dependence, unspecified, uncomplicated; Y90.9 Presence of alcohol in blood, level not specified
CPT/HCPCS: 36415; 71045; 80053; 82075; 83735; 84484; 85025; 85610; 85730; 93005; 99285

== ENCOUNTER 2020-06-14 19:48 | Emergency (ER) | payer OTHER ==
[2020-06-14 20:16] VITALS: BP 129/87; PULSE 82; RESP 16; TEMP 97.8
--- NOTE | 2020-06-14 22:53 | ED ---
Alcohol HPI - General Chief Complaint: Alcohol Stated Complaint: Mental health Time Seen by Provider: 06/14/20 21:58 Source: patient, police, RN notes reviewed, old records reviewed Mode of arrival: ambulatory Limitations: no limitations - History of Present Illness Initial Comments: This is a 65-year-old male DF for evaluation patient presents today for alcohol intoxication. His third registration first sexual visitation here in the emergency department. Patient states he is BEEN drinking all day but denies homicidal or suicidal thoughts. Patient on questioning states is related to go home MD Complaint: alcohol intoxication Last Drink: just SAND [employer] -: days(s) Previous Visits for Alcohol Intoxication?: Yes Recent Trauma: Yes Associated Symptoms: denies other symptoms Treatments Prior to Arrival: none Chronic Alcohol Use: Yes - Related Data Home Medications Medication Instructions Recorded Confirmed Naproxen [Naprosyn] 500 mg PO Q12H PRN 06/09/20 06/14/20 Allergies Allergy/AdvReac Type Severity Reaction Status Date / Time No Known Allergies Allergy Verified 06/14/20 22:17 Review of Systems ROS Statement: Those systems with pertinent positive or pertinent negative responses have been documented in the HPI. ROS Other: All systems not noted in ROS Statement are negative. Past Medical History Past Medical History: Unable to Obtain Additional Past Medical History / Comment(s): states chronic heart pt and states hx of head injury History of Any Multi-Drug Resistant Organisms: None Reported Past Surgical History: Unable to Obtain Past Psychological History: Unable to Obtain Smoking Status: Current every day smoker Past Alcohol Use History: Abuse, Daily, Heavy Past Drug Use History: None Reported, Heroin General Exam Limitations: no limitations General appearance: alert, in no apparent distress Head exam: Present: atraumatic, normocephalic, normal inspection Eye exam: Present: normal appearance, PERRL, EOMI. Absent: scleral icterus, conjunctival injection, periorbital swelling ENT exam: Present: normal exam, mucous membranes moist Neck exam: Present: normal inspection. Absent: tenderness, meningismus, lymphadenopathy Respiratory exam: Present: normal lung sounds bilaterally. Absent: respiratory distress, wheezes, rales, rhonchi, stridor Cardiovascular Exam: Present: regular rate, normal rhythm, normal heart sounds. Absent: systolic murmur, diastolic murmur, rubs, gallop, clicks GI/Abdominal exam: Present: soft, normal bowel sounds. Absent: distended, tenderness, guarding, rebound, rigid Extremities exam: Present: normal inspection, full ROM, normal capillary refill. Absent: tenderness, pedal edema, joint swelling, calf tenderness Back exam: Present: normal inspection Neurological exam: Present: alert, oriented X3, CN II-XII intact Psychiatric exam: Present: normal affect, normal mood Skin exam: Present: warm, dry, intact, normal color. Absent: rash Course Vital Signs 06/14/20 20:08 Temperature 97.8 F Pulse Rate 82 Respiratory 16 Rate Blood Pressure 129/87 O2 Sat by Pulse 97 Oximetry - Reevaluation(s) Reevaluation #1: 06/14/20 22:53 Medical record is reviewed Reevaluation #2: 06/14/20 22:53 Patient is awake and alert, not clinically intoxicated able ambulate, states that he will walk home Medical Decision Making - Medical Decision Making 65 male to the ED for alcohol intoxication. Patient can be discharged Disposition Clinical Impression: Alcohol intoxication Disposition: HOME SELF-CARE Condition: Good Instructions (If sedation given, give patient instructions): Alcohol Intoxication (ED) Is patient prescribed a controlled substance at d/c from ED?: No Referrals: None,Stated [Primary Care Provider] - 1-2 days
[2020-06-14 23:22] LABS: Amphetamine Screen,Urine Not Detected (NotDetected); Barbiturate Screen,Urine Not Detected (NotDetected); Benzodiazepines Screen,Urine Detected (NotDetected); Cocaine Screen,Urine Not Detected (NotDetected); Methadone Screen, Urine Not Detected (NotDetected); Opiate Screen,Urine Not Detected (NotDetected); Oxycodone Screen, Urine Not Detected (NotDetected); Phencyclidine Screen,Urine Not Detected (NotDetected); Tricyclic Antidepressant,Urine Not Detected (NotDetected); Urn Cannabinoid Scrn Not Detected (NotDetected)
== END 2020-06-15 06:22 | disposition home or self-care (01) ==
LOC: EC 19:48
DX: F10.129 Alcohol abuse with intoxication, unspecified (principal); F17.200 Nicotine dependence, unspecified, uncomplicated; Z79.1 Long term (current) use of non-steroidal anti-inflammatories (NSAID)
CPT/HCPCS: 36415; 71045; 80053; 80306; 82075; 83735; 84484; 85025; 85610; 85730; 93005; 99283; 99285